=== PATIENT | female | born 1990 | race Caucasian/White ===

== ENCOUNTER 2017-01-24 19:41 | Emergency (ER) | payer MEDICAID ==
--- NOTE | 2017-01-24 20:23 | ED Physician Chart ---
ED Chief Complaint/HPI - Patient Information Date Seen:: 01/24/17 Chief Complaint:: sore throat History of Present Illness:: 2 day duration Allergies:: Allergies Allergy/AdvReac Type Severity Reaction Status Date / Time No Known Allergies Allergy Verified 10/24/15 16:46 Vitals:: Vital Signs - 8 hr 01/24/17 19:50 Temp 98.9 F HR 77 RR 19 BP 133/63 O2 Sat % 99 Review:: Nurse's Note Reviewed (associated cough) ED Review of Systems - Review of Systems General/Constitutional: No fever Skin: No skin lesions Head: No headache Eyes: No loss of vision ENT: No earache Neck: Neck pain Cardio Vascular: No chest pain Pulmonary: No SOB, Cough GI: Vomiting, No vomiting G/U: No dysuria Transition Specialist: No abnormal vaginal bleed Musculoskeletal: No bone or joint pain Endocrine: No polyuria Psychiatric: No prior psych history Hematopoietic: No bruising Allergic/Immuno: No urticaria Neurological: No syncope ED Past Medical History - Past Medical History Obtainable: Yes Past Medical History: No significant medical hx Family History: None Social History: Smoker Surgical History: None Psychiatricy History: None Medication: None Family Medical History - Family Member Mother History Unknown: Yes ED Physical Exam - Physical Examination General/Constitutional: Well-developed, well-nourished, Alert Head: Atraumatic Eyes: Lids, conjuctiva normal Skin: Nl inspection ENMT: External ears, nose nl Neck: Nontender Respiratory: Nl effort/Exclusion Cardio Vascular: RRR GI: No tenderness/rebounding/guarding : No CVA tenderness Extremities: No tenderness or effusion Neuro/Psych: Alert/oriented (clearing throat raspy voice no stridor paroxyms of cough 1/5) ED Assessment - Assessment This condition life threatening/high prob of deterioration: No ED Septic Shock - . Is Septic Shock (SBP<90, OR Lactate>4 mmol\L) present?: No - <6hrs of presentation: Vital Signs: Vital Signs - 8 hr 01/24/17 19:50 Temp 98.9 F HR 77 RR 19 BP 133/63 O2 Sat % 99 ED Reassessment (Disposition) - Reassessment Reassessment Condition:: Unchanged - Aftercare/Follow up Instructions Aftercare/Follow-Up Instructions:: Counseled pt regarding lab results/diagnosis & need follow up, Refer to Discharge Instructions, Counseled pt & family regarding lab results/diagnosis & need follow up - Patient Disposition Discharge/Transfer:: Home (continue to have productive cough take z pack avoid NYQUIL robitussin DMis only antitussive)
== END 2017-01-24 20:40 | disposition home or self-care (01) ==
LOC: ER 19:41
DX: J02.9 Acute pharyngitis, unspecified (principal); R50.9 Fever, unspecified
CPT/HCPCS: 87081-90; Z7502